=== PATIENT | male | born 1960 | race Caucasian/White ===

== ENCOUNTER → 2018-10-15 | Outpatient (CLI) | payer OTHER | LOC: BMCIMAGING 10:23 | PROVIDERS: ATTEND Family Medicine | DX: N62 Hypertrophy of breast (principal) ==

== ENCOUNTER → 2018-10-15 | Outpatient (CLI) | payer OTHER | LOC: BMCIMAGING 10:30 | PROVIDERS: ATTEND Internal Medicine Nephrology | DX: N20.0 Calculus of kidney (principal) ==

== ENCOUNTER → 2019-01-28 | Outpatient (CLI) | payer OTHER | LOC: BMCIMAGING 08:12 | PROVIDERS: ATTEND Specialist | DX: Q61.9 Cystic kidney disease, unspecified (principal); N20.0 Calculus of kidney ==

== ENCOUNTER → 2019-04-28 | Outpatient (CLI) | payer OTHER | LOC: BMCIMAGING 11:08 ==